=== PATIENT | female | born 1985 ===

== ENCOUNTER 2018-01-03 21:13 | Emergency (ER) | payer SELFPAY ==
[2018-01-03 22:14] VITALS: BP 111/67; PULSE 64; RESP 16; TEMP 98.4; O2SAT 100
[2018-01-04 01:28] LABS: BASO # 0.1 K/uL (0.0-0.2); BASO % 1.3 % (0.0-2.0); EOS # 0.1 K/uL (0.0-0.7); EOS % 1.9 % (0.0-4.0); HEMOGLOBIN 12.1 g/dL (12.0-16.0); LYMPH # 2.9 K/uL (1.0-4.3); LYMPH % 38.4 % (20.0-40.0); MEAN CELL VOLUME 90.8 fl (81.0-99.0); MEAN CORPUSCULAR HEMOGLOBIN 30.2 pg (27.0-31.0); MEAN CORPUSCULAR HGB CONC 33.3 g/dL (33.0-37.0); MEAN PLATELET VOLUME 8.9 fl (7.2-11.7); MONO # 0.6 K/uL (0.0-0.8); MONO % 8.1 % (0.0-10.0); NEUT # 3.9 K/uL (1.8-7.0); NEUT % 50.3 % (50.0-75.0); NRBC % 0.1 % (0.0-0.0); RBC 4.02 Mil/uL (3.80-5.20); RED CELL DISTRIBUTION WIDTH 12.2 % (11.5-14.5); WHITE BLOOD COUNT 7.7 K/uL (4.8-10.8)
[2018-01-04 01:36] LABS: ALB/GLOB RATIO 1.2 (1.0-2.1); ALBUMIN 4.1 g/dL (3.5-5.0); ALT/SGPT 26 U/L (9-52); AST/SGOT 26 U/L (14-36); BLOOD UREA NITROGEN 5 mg/dl (7-17); GFR AFRICAN-AMERICAN > 60; GFR NON-AFRICAN AMERICAN > 60
--- NOTE | 2018-01-04 01:48 | ED PDOC ---
HPI: Female Pain Time Seen by Provider: 01/03/18 23:15 Chief Complaint (Nursing): Female Genitourinary Chief Complaint (Provider): Female Genitourinary History Per: Patient History/Exam Limitations: no limitations Onset/Duration Of Symptoms: Days (x 3 weeks) Current Symptoms Are (Timing): Still Present Additional Complaint(s): 32 year old female with no significant medical history presents to the ED complaining of vaginal bleeding, onset 3 weeks ago. She used 5-7 pads per day. Today she also reports abdominal cramping and lightheadedness. Her period was a little late and she is normally regular. Patient thinks her last period before this one was in September. Denies any other symptoms, nausea, vomiting, diarrhea , constipation. PMD: none Past Medical History Reviewed: Historical Data, Nursing Documentation, Vital Signs Vital Signs: Last Vital Signs Temp 98.4 F 01/03/18 22:11 Pulse 64 01/03/18 22:11 Resp 16 01/03/18 22:11 BP 111/67 01/03/18 22:11 Pulse Ox 100 01/03/18 22:11 - Medical History PMH: No Chronic Diseases - Surgical History Surgical History: (x2) Other surgeries: tubal ligation - Allergies Allergies/Adverse Reactions: Allergies Allergy/AdvReac Type Severity Reaction Status Date / Time No Known Allergies Allergy Verified 01/03/18 22:14 Review of Systems Gastrointestinal: Negative for: Nausea, Vomiting, Diarrhea Genitourinary Female: Positive for: Vaginal Bleeding. Negative for: Dysuria, Frequency, Incontinence, Hematuria Neurological: Positive for: Dizziness Physical Exam - Physical Exam Gastrointestinal/Abdominal: Positive for: Tenderness (mild suprapubic to palpation) - ECG O2 Sat by Pulse Oximetry: 100 (RA) Pulse Ox Interpretation: Normal Medical Decision Making Medical Decision Making: Time; 23:48 Imp: heavy vag bleeding diff anemia dysmauria metrorragia coagulopathy Initial Plan: --Blood type and screen --CMP --Urine preg --Urine dip --CBC --PTT --Prothrombin Scribe Attestation: Documented by Danelle Gutiérrez, acting as a scribe for Erin Santillan MD. Provider Scribe Attestation: All medical record entries made by the Scribe were at my direction and personally dictated by me. I have reviewed the chart and agree that the record accurately reflects my personal performance of the history, physical exam, medical decision making, and the department course for this patient. I have also personally directed, reviewed, and agree with the discharge instructions and disposition. Disposition - Patient ED Disposition Is Patient to be Admitted: Transfer of Care - Disposition Disposition: Transfer of Care Disposition Time: 00:00 Condition: STABLE Patient Signed Over To: Irvin Jimenez
--- NOTE | 2018-01-04 01:56 | ED PDOC ---
- Laboratory Results Result Diagrams: 01/04/18 01:25 01/04/18 01:25 - ECG O2 Sat by Pulse Oximetry: 100 (RA) Pulse Ox Interpretation: Normal Medical Decision Making Medical Decision Makin:00 --endorsed to me pending labs and reevaluation Transvaginal US FINDINGS: Uterus/cervix: Unremarkable. Normal endometrial stripe thickness. No myometrial mass. Right ovary: Right ovarian cyst measuring 1.9 x 2.4 x 2.2 cm. Normal blood flow. Left ovary: Unremarkable. No mass. Normal blood flow. Free fluid: No free fluid. IMPRESSION: No acute findings. US reports showed no acute findings. Patient was made aware of results. She is stable for discharge. The diagnosis is menorrhagia. Advised to follow up with [facility]. Scribe Attestation: Documented by Danelle Gutiérrez, acting as a scribe for Irvin Jimenez MD. Provider Scribe Attestation: All medical record entries made by the Scribe were at my direction and personally dictated by me. I have reviewed the chart and agree that the record accurately reflects my personal performance of the history, physical exam, medical decision making, and the department course for this patient. I have also personally directed, reviewed, and agree with the discharge instructions and disposition. Disposition - Clinical Impression Clinical Impression: Menorrhagia - POA Present On Arrival: None - Disposition Referrals: [facility] [Outside] Disposition: Routine/Home Disposition Time: 04:10 Condition: IMPROVED Instructions: Menorrhagia (ED) Forms: [employer] (Arabic)
[2018-01-04 02:02] LABS: INR 1.2 (0.9-1.2); PROTHROMBIN TIME 12.9 Seconds (9.8-13.1)
[2018-01-04 02:03] LABS: PARTIAL THROMBOPLASTIN TIME 29.7 Seconds (25.6-37.1)
--- NOTE | 2018-01-04 08:43 | US ---
HISTORY: menorrhagia COMPARISON: None available. TECHNIQUE: Grayscale, color Doppler and spectral evaluation of the pelvis performed transvaginally FINDINGS: UTERUS: Measures 9.9 x 5.8 x 6.9 cm. Anteverted. Normal in size and appearance. No fibroid or other mass lesion seen. ENDOMETRIUM: Measures 6 mm in diameter. Unremarkable. CERVIX: No cervical abnormality identified. RIGHT OVARY: Measures 3.5 x 2.7 x 2.8 cm. Dominant follicle. No solid mass. Normal flow. LEFT OVARY: Measures 2.3 x 1.8 x 1.3 cm. No solid mass. Normal flow. FREE FLUID: No significant free fluid noted. OTHER FINDINGS: None. IMPRESSION: Unremarkable pelvic ultrasound.
== END 2018-01-04 04:25 | disposition home or self-care (01) ==
LOC: H.ER 21:13
DX: N92.0 Excessive and frequent menstruation with regular cycle (principal); D64.9 Anemia, unspecified